=== PATIENT | female | born 1985 | race Caucasian/White ===

== ENCOUNTER 2020-12-24 12:04 | Emergency (ER) | payer OTHER ==
[2020-12-24 12:18] VITALS: BP 120/79; PULSE 108; TEMP 99.3; BMI 44.4
[2020-12-24] MEDS ORDERED: IBUPROFEN 400 MG TABLET (FP) PO ONE ×2 (13:38→13:42)
== END 2020-12-24 13:50 | disposition home or self-care (01) ==
LOC: JERFT 12:04
DX: S93.402A Sprain of unspecified ligament of left ankle, initial encounter (principal); W19.XXXA Unspecified fall, initial encounter; Y92.9 Unspecified place or not applicable
CPT/HCPCS: 73610-TC-LT-FY; 73630-TC-LT; 99284-25